=== PATIENT | male | born 1965 | race Caucasian/White ===

== ENCOUNTER → 2017-11-23 | Outpatient (CLI) | payer OTHER | LOC: M SLEEP 20:00 | DX: G47.33 Obstructive sleep apnea (adult) (pediatric) (principal) | CPT/HCPCS: 95811 ==

== ENCOUNTER → 2022-12-08 | Outpatient (CLI) | payer OTHER | LOC: M RAD 08:54 | PROVIDERS: ATTEND Nurse Practitioner | DX: M25.512 Pain in left shoulder (principal); M19.012 Primary osteoarthritis, left shoulder; M25.412 Effusion, left shoulder; S46.812A Strain of other muscles, fascia and tendons at shoulder and upper arm level, left arm, initial encounter; X58.XXXA Exposure to other specified factors, initial encounter; Y92.9 Unspecified place or not applicable; Y93.9 Activity, unspecified; Y99.9 Unspecified external cause status ==

== ENCOUNTER → 2024-07-07 | Outpatient (CLI) | payer OTHER | LOC: M RAD 07:52 | PROVIDERS: ATTEND Nurse Practitioner | DX: I71.00 Dissection of unspecified site of aorta (principal) ==

== ENCOUNTER → 2024-10-12 | Outpatient (CLI) | payer OTHER | LOC: M SLEEP HO 11:40 | PROVIDERS: ATTEND Internal Medicine Cardiovascular Disease | DX: G47.33 Obstructive sleep apnea (adult) (pediatric) (principal) ==

== ENCOUNTER → 2024-10-22 | Outpatient (CLI) | payer OTHER | LOC: M CARPUL 08:33 | PROVIDERS: ATTEND Internal Medicine Cardiovascular Disease | DX: R94.31 Abnormal electrocardiogram [ECG] [EKG] (principal); I25.10 Atherosclerotic heart disease of native coronary artery without angina pectoris ==

== ENCOUNTER → 2025-02-06 | Outpatient (CLI) | payer OTHER | LOC: M SLEEP 20:00 | PROVIDERS: ATTEND Internal Medicine Pulmonary Disease | DX: G47.33 Obstructive sleep apnea (adult) (pediatric) (principal) ==